=== PATIENT | female | born 1995 | race Caucasian/White ===

== ENCOUNTER 2018-05-26 07:30 | Day surgery (SDC) | payer OTHER ==
[2018-05-18 13:17] VITALS: BMI 19.5
[2018-05-26] MEDS ORDERED: Oxymetazoline HCl 0.05% ( 15 ML ) ONE ×2 (08:12→09:20)
[2018-05-26 08:32] LABS: BHCG - Serum Negative (NEGATIVE); Pregs Control Background? CLEAR/WHITE (CLR/WHITE); Pregs Control Bar Appear? YES (CONTROL BAR)
[2018-05-26] MEDS ORDERED: Bacitracin Zinc Ointment 30 gm TUBE ONE (09:20)
[2018-05-26] MEDS ORDERED: Lidocaine 1% w/Epinephrine 1:100K 30 ML VIAL ONE (09:20)
[2018-05-26] MEDS ORDERED: Midazolam HCl 2 mg/2 ml Vial ONE (09:22)
[2018-05-26] MEDS ORDERED: Fentanyl 100 MCG/2 ML VIAL ONE ×2 (09:22→10:56)
[2018-05-26] MEDS ORDERED: Hydrocodone-Acetamin 15 ML UDCUP ONE (12:17)
[2018-05-26] MEDS ORDERED: Lidocaine 1% PF 5 ML VIAL ONE (15:17)
[2018-05-26] MEDS ORDERED: Ondansetron HCl/PF 4 MG/2 ML Vial ONE (15:17)
[2018-05-26] MEDS ORDERED: Dexamethasone 20 MG/5 ML VIAL ONE (15:17)
[2018-05-26] MEDS ORDERED: Succinylcholine Chloride 20 MG/ML 10 ml SYRINGE FS ONE (15:17)
[2018-05-26] MEDS ORDERED: PROPOFOL 200 MG/20 ML VIAL ONE (15:17)
--- NOTE | 2018-05-27 13:22 | OP ---
PREOPERATIVE DIAGNOSES: 1. Chronic rhinosinusitis. 2. Nasal septal deviation. 3. Bilateral inferior turbinate hypertrophy. 4. Chronic adenotonsillitis. 5. Adenotonsillar hypertrophy. POSTOPERATIVE DIAGNOSES: 1. Chronic rhinosinusitis. 2. Nasal septal deviation. 3. Bilateral inferior turbinate hypertrophy. 4. Chronic adenotonsillitis. 5. Adenotonsillar hypertrophy. PROCEDURES PERFORMED: 1. Bilateral endoscopic sinus surgery, total ethmoidectomies. 2. Bilateral endoscopic sinus surgery, maxillary antrostomies. 3. Bilateral endoscopic sinus surgery, frontal sinusotomies. 4. Bilateral endoscopic sinus surgery, sphenoidotomies. 5. Nasal septoplasty. 6. Bilateral inferior turbinate submucosal resection. 7. Tonsillectomy and adenoidectomy. SURGEON: Willi Kay M.D. ESTIMATED BLOOD LOSS: 50 mL COMPLICATIONS: None. ANESTHESIA: GETA. PROCEDURE IN DETAIL: After consent was obtained, the patient was identified, brought to the operatin g room, and placed on the operating table in the supine position. General endotracheal anesthesia and intravenous access was obtained and we proceeded with positioning the patient for oropharyngeal surg carmen. Oropharyngeal exposure was obtained with a Jin-Kirk mouth gag after a head drape was placed and secured with a towel clip. The Jin-Kirk mouth gag was then suspended from the Green tray and p alatal elevation was achieved with a red rubber catheter. The right tonsil was addressed first. We used a curved Allis to grasp the tonsil and retract it medially as an anterior pillar incision was ma de. The retrotonsillar fascial plane was then established and blunt dissection was performed with th e suction cautery. Blood vessels were anticipated, identified, and cauterized as they were encounter ed. Ultimately, dissection was carried to the posterior tonsillar pillar mucosa which was incised he mostatically, as well as the base of tongue connection. The tonsil was then passed off as a specimen and bleeding points within the tonsillar bed were cauterized under direct visualization. We subsequ ently turned our attention to the contralateral side, where using a similar technique, a near identic al procedure was performed. Again, the tonsil was grasped and retracted medially with a curved Allis . The retrotonsillar fascial plane was established and while the anterior pillar was retracted media lly, the hemostatic blunt dissection of the tonsil with a suction cautery was performed with blood ve ssels anticipated, identified, and cauterized as they were encountered. Again, dissection continued to the base of tongue and posterior tonsillar pillar mucosa which was incised in a hemostatic fashion . The tonsillar beds were then carefully inspected and bleeding points were identified and cauterize d with a suction cautery. After this portion of the procedure, hemostasis was completely obtained. U nder direct mirror visualization, we visualized the adenoid pad. Under direct mirror visualization, w e removed the bulk of the adenoid tissue with the adenoid curette. We then packed the nasopharynx fo r an appropriate period of time with Mook-Synephrine saturated tonsillar sponges. After a period of o bservation, we removed the pack. Under indirect mirror visualization, we obtained hemostasis and vap orization of residual adenoid tissue with electrocautery. The patient's oral cavity was copiously ir rigated with iced saline and subsequently suctioned. After completion of the procedure, the nasal ca vity and oropharynx were irrigated and suctioned as were the gastric contents. The patient was then awakened and transferred to the recovery room where the patient remained in stable condition prior to discharge to Day Stay. Following this, tube was secured in the left lower lip. Patient was then placed in the beach chair p osition, and Afrin pledgets were placed in the nasal cavity. Injections of 1% lidocaine with 1:100,0 00 epinephrine were made into the nasal septum as well as the inferior turbinates. Patient was then prepped and draped in standard surgical fashion for nasal surgery. Following this, the Afrin pledget s were removed. A Tuckerman incision was made on the left nasal septum. Submucoperichondrial dissectio n was performed. The deviated portions of the septum included portions of the cartilage and the bony septum. These isolated areas were removed using three cutting rongeurs. There was noted to be a lar ge dorsal and caudal strut, left intact for support of the nose. The mucoperichondrial flaps were the n reapproximated using a 4-0 gut stitch. Any straight pieces of cartilage were crushed prior to this and placed between the mucoperichondrial flaps. Following this, the inferior turbinates were then pun ctured with a submucosal coblation wand, and submucosal coblations were performed of multiple areas o f the inferior portion of the anterior inferior turbinate. Please note that the submucosal microdebrider was used to submucosally resect the anterior and inferi or portions of the inferior turbinates bilaterally. Following this, the 0 degree scope was advanced into middle meatus and middle turbinates were identified bilaterally and were gently medialized using a [place] elevator. Following this, the uncinate process was identified bilaterally and was anteriorl y fractured using the ball-ended probe. Following this, the uncinate was removed using the straight microdebrider and upbiting Blakesley forceps bilaterally. Following this, the natural maxillary sinu s ostia were identified by palpation using the ball-ended probe bilaterally. Following this, the max illary sinus ostia were widened using the curved microdebrider and straight Blakesley forceps bilater ally. Following this, the ethmoidal bulla was identified and was punctured on its medial and inferio r aspect using the microdebrider and was removed using the microdebrider and upbiting Blakesley force ps. Following this, the microdebrider was then used to puncture the grand lamella bilaterally into t he posterior ethmoidal cells. Working from posterior to anterior, the ethmoidal cells were opened in a mucosal-sparing technique bilaterally. Following this, the sphenoid sinuses were identified. Wor domi through the previous ethmoidectomies and the sphenoid sinus ostia were then punctured and widene d using the 0 degree microdebrider. They were widened medially and inferiorly with the microdebrider bilaterally. Following this, the 45-degree scope and the curved microdebrider were used to further open the frontal recess cells and expose the frontal sinus ostia. Following this, the frontal sinus ostia were widened using the curved microdebrider bilaterally. Following this, the nasal cavity was irrigated. MeroPacks were placed within the middle meatus. Torres splints were placed and secured. The patient tolerated the procedure well.
== END 2018-05-26 13:25 | disposition home or self-care (01) ==
LOC: SDC 07:30
PROVIDERS: ATTEND Otolaryngology Plastic Surgery within the Head & Neck
PROC: 09BU8ZZ Excision of Right Ethmoid Sinus, Via Natural or Artificial Opening Endoscopic (ICD-10-PCS; principal; 2018-05-26)
PROC: 09BV8ZZ Excision of Left Ethmoid Sinus, Via Natural or Artificial Opening Endoscopic (ICD-10-PCS; principal; 2018-05-26)
PROC: 0C5Q0ZZ Destruction of Adenoids, Open Approach (ICD-10-PCS; principal; 2018-05-26)
PROC: 0C5PXZZ Destruction of Tonsils, External Approach (ICD-10-PCS; principal; 2018-05-26)
DX: J32.9 Chronic sinusitis, unspecified (principal); J35.03 Chronic tonsillitis and adenoiditis; J34.2 Deviated nasal septum; J34.3 Hypertrophy of nasal turbinates
CPT/HCPCS: 36415; 84703; 85014; 88304; 96374; J1100; J2001; J2250; J2405; J2704; J3010